=== PATIENT | female | born 2000 | race Caucasian/White ===

== ENCOUNTER 2021-06-03 22:27 | Emergency (ER) | payer SELFPAY ==
[~2021-06-03] VITALS: Ht 167.6 cm; Wt 52.0 kg
[2021-06-03] MEDS ORDERED: IBUPROFEN 600MG TABLET PO STA (23:02)
[2021-06-04] MEDS ORDERED: IBUP-2029 MT (01:35)
[2021-06-04 01:48] VITALS: BP 126/108
== END 2021-06-04 02:16 | disposition home or self-care (01) ==
LOC: ER 22:27
DX: S39.012A Strain of muscle, fascia and tendon of lower back, initial encounter (principal); S06.0X0A Concussion without loss of consciousness, initial encounter; R07.89 Other chest pain; V49.59XA Passenger injured in collision with other motor vehicles in traffic accident, initial encounter; Y93.89 Activity, other specified; Y92.89 Other specified places as the place of occurrence of the external cause; Y99.8 Other external cause status
CPT/HCPCS: 71045; 72100; 73130; 81025; 93005; 99285